=== PATIENT | male | born 1940 | race Caucasian/White ===

== ENCOUNTER 2018-08-26 15:31 | Inpatient (IN) ==
--- NOTE | 2018-08-26 15:14 | HISTORY AND PHYSICAL ---
HISTORY OF PRESENT ILLNESS: Mr. Jo is a patient of mine who last week around Friday or , a week ago, started feeling pretty bad, coughing, bronchial irritation, concerned because he was getting some chest pain and some radiating to the jaw. Blood pressure was fluctuating going up and blood pressure seemed to go down. His chest pain has seemed to resolve, but he still feels pretty bad. He did go to the emergency room and he feels like he has had subjective fever and malaise. PAST MEDICAL HISTORY: 1. Coronary artery disease. 2. He has a pacemaker for persistent atrial fibrillation. 3. Echocardiogram shows good left ventricular function, grade 2A diastolic dysfunction. He has right ventricular systolic pressure of 33 mmHg. 4. History of myocardial infarction. He is status post PTCA to the [facility]. He had a PTCA with LAD disease, followed by Dr. Olson. 5. Hyperlipidemia. 6. Hypertension. 7. History of syncope. 8. Osteoarthritis, lower back pain. Plan to admit him for suspect influenza, suspect viral upper respiratory tract infection complicated by underlying coronary artery disease, concerned about his chest pain and want to make sure he is not having unstable angina. He has had some palpitations as well. He does have chronic atrial fibrillation. SOCIAL HISTORY: He is . Negative for alcohol and tobacco. FAMILY HISTORY: Noncontributory. He does not have a significant history of coronary artery disease in his family. REVIEW OF SYSTEMS: General: He has not been able to eat or drink much. He has had some nausea and dyspepsia. HEENT: No change in his hearing or visual acuity. No complaints of cervical adenopathy. GI/: He has had some nausea and dyspepsia. No diarrhea. No gross hematuria or dysuria. Musculoskeletal/Neurologic: No focal complaints. Immunologic/Hematologic: No significant history. PHYSICAL EXAMINATION: VITAL SIGNS: Blood pressure 140/80, pulse 66, respirations 18, temperature 100.3 degrees. GENERAL: Well developed, well nourished, white male. HEENT: Pupils are equal and round. CVP is less than 6 cm. Oropharynx and nasal mucosa unremarkable. LUNGS: Clear anterior lateral and posterior. ABDOMEN: Soft. SKIN: Warm, dry. EXTREMITIES: No pedal edema. ASSESSMENT AND PLAN: 1. Bronchitis, suspect viral. Will check for influenza. Will give him some intravenous fluids. 2. History of coronary artery disease. He had some chest pain. It felt like it was pressure and radiating to his jaw, so will check cardiac enzymes and check his thyroid function as well. Watch him on the monitor. 3. History of atrial fibrillation. Will watch him on the monitor. The rate seems to be controlled. 4. Blood pressure apparently has been fluctuating, so will monitor that while we are there. 5. History of gastroesophageal reflux. 6. Osteoarthritis with lower back degenerative disk disease. cc: Norm Kenyon MD
[2018-08-26] MEDS ORDERED: CATAPRES-TTS-2 TD SCH (15:37)
[2018-08-26] MEDS ORDERED: ZOFRAN IV PRN (15:37)
[2018-08-26] MEDS ORDERED: SALINE LOCK IV FLUID XX ONE (15:37)
[2018-08-26] MEDS ORDERED: TYLENOL PO PRN (15:37)
--- NOTE | 2018-08-26 15:49 | EKG Report ---
Test Performed on : 08/26/2018 3:44:25 PM Test Reason : chest pain Blood Pressure : / mmHG Vent. Rate : 096 BPM Atrial Rate : 096 BPM P-R Int : 278 ms QRS Dur : 196 ms QT Int : 472 ms P-R-T Axes : 084 -76 091 degrees QTc Int : 596 ms Ventricular-paced rhythm Right atrial enlargement Left ventricular hypertrophy with QRS widening and repolarization abnormality Possible Lateral infarct , age undetermined Abnormal ECG When compared with ECG of 22-AUG-2018 13:22, (Unconfirmed) Sinus rhythm. has replaced Electronic ventricular pacemaker Confirmed by Makenzie VANEGAS, Rico Echevarria ([id number]) on 08/27/2018 7:12:35 AM
[2018-08-26 16:27] LABS: BASO# 0.05 X1000 (0.0-0.2); BASO% 0.7 % (0.0-0.8); EOS# 0.23 X1000 (0.0-0.7); HEMATOCRIT 46.1 % (42.0-52.0); HEMOGLOBIN 16.1 g/dL (14.0-18.0); IMM GRAN# 0.02 X1000 (0.0-0.04); IMM GRAN% 0.3 % (0.0-0.5); LYMPH# 2.98 X1000 (1.2-3.4); MCH 29.4 PG (27-31); MCHC 34.9 g/dL (33-37); MCV 84.1 FL (81-99); MONO# 0.94 X1000 (0.11-0.59); MONO% 12.3 % (1.7-9.3); MPV 10.6 FL (7.4-10.4); NEUT# 3.43 X1000 (1.4-6.5); NEUT% 44.7 % (42.2-75.2); PLT 267 X1000 (130-400); RBC 5.48 XMIL (4.7-6.1); RDW 14.2 % (11.5-14.5); WBC 7.65 X1000 (4.8-10.8)
--- NOTE | 2018-08-26 16:38 | Diag Imaging Result Doc PS360 ---
CHEST-2 VIEWS - 08/26/2018 INDICATION: Chest Pain COMPARISON: 08/22/2018 FINDINGS: Stable left-sided dual-chamber pacemaker. Heart size and pulmonary vascularity is normal. No focal infiltrates, pneumothorax, or pleural effusion. IMPRESSION: No acute disease or change from prior. Electronically signed by Gonzalo Urrutia 08/26/2018 4:36 PM
[2018-08-26 16:41] LABS: ESTIMATED GFR > 60
[2018-08-26 16:43] LABS: AGAP 16; ALB/GLOB RATIO 1.8; ALBUMIN 4.6 g/dL (3.5-5.0); ALKALINE PHOSPHATASE 60 U/L (32-122); BUN 18 mg/dL (8-22); CALCIUM 10.1 mg/dL (8.8-10.2); CHLORIDE 89 mmol/L (98-107); CK PROFILE 170 U/L (24-204); COSMO 265; GLUCOSE 105 mg/dL (70-104); GOT 28 U/L (10-34); GPT 51 U/L (10-44); MAGNESIUM 1.6 mg/dL (1.5-2.7); POTASSIUM 3.7 mmol/L (3.5-5.1); SODIUM 131 mmol/L (136-145); TCO2 26 mmol/L (25-35); TOTAL BILIRUBIN 0.51 mg/dL (0.20-1.00); TOTAL PROTEIN 7.2 g/dL (6.3-8.3)
[2018-08-26] MEDS: NS + KCL 20 MEQ 1,000 ML IV SCH (16:45)
[2018-08-26] MEDS: ALBUTEROL NEB INH PRN (19:45)
[2018-08-26] MEDS: COREG PO SCH (21:21)
[2018-08-26] MEDS: PRINIVIL PO SCH (21:21)
[2018-08-26] MEDS: MULTAQ PO SCH (21:21)
[2018-08-27] MEDS: ADVAIR 250/50 DISKUS INH SCH ×2 (04:34→07:34)
[2018-08-27] MEDS: NS + KCL 20 MEQ 1,000 ML IV SCH ×2 (05:24→05:25)
[2018-08-27] MEDS: PRINIVIL PO SCH ×2 (06:32→08:03)
[2018-08-27] MEDS: COREG PO SCH ×2 (06:33→08:03)
[2018-08-27] MEDS ORDERED: PRILOSEC PO SCH (07:00)
[2018-08-27] MEDS: ALBUTEROL NEB INH PRN ×2 (07:34→11:12)
[2018-08-27] MEDS: MULTAQ PO SCH (08:19)
[2018-08-27] MEDS ORDERED: VICON-C PO SCH (09:00)
[2018-08-27] MEDS ORDERED: NORVASC PO SCH (09:00)
[2018-08-27] MEDS ORDERED: XARELTO PO SCH (09:00)
[2018-08-27] MEDS ORDERED: HYDROCHLOROTHIAZIDE PO SCH (09:00)
[2018-08-27] MEDS ORDERED: TRICOR PO SCH (09:00)
[2018-08-27] MEDS ORDERED: CRESTOR PO SCH (09:00)
[2018-08-27] MEDS ORDERED: ASPIRIN PO SCH (09:00)
[2018-08-27 11:22] VITALS: BP 146/77
--- NOTE | 2018-08-27 13:57 | PROGRESS NOTE ---
DATE: 08/27/2018 SUBJECTIVE: He was admitted yesterday on 08/26/2018. This is a 78-year-old patient of mine that I have known for a long time. Last week about a week ago or 6 days ago, he started feeling pretty bad, coughing, bronchial irritation, concerned because he was getting some chest pain which radiated into his jaw. Blood pressure was fluctuating up and down and that bothered him quite a bit too. He noticed when his blood pressure would go up, he had a little more chest pain. He actually felt a little better by the time he came to my office on 08/26/2018, but still felt bad. [place] like he had subjective fever. No rash, no joint pain. No diarrhea or nausea. He did have some nausea a couple days prior to this to presenting to my office. PAST MEDICAL HISTORY: 1. Coronary artery disease. 2. Pacemaker placed for persistent atrial fibrillation. 3. Echocardiogram which showed good left ventricular function, grade 2A diastolic dysfunction. 4. History of myocardial infarction status post PTCA and PDA and PTCA to the L[facility] followed by Dr. Mc. 5. Hyperlipidemia. 6. Hypertension. 7. History of syncope. 8. Osteoarthritis. He was having bronchial irritation and cough, concern about influenza. We checked nasal swabs; he was negative for A and B, but it looked like consistent with a viral bronchitis. He had no further chest pain. His enzymes were negative. Blood pressure remained stable. Hemodynamically, he looked stable. He was able to eat and felt much better the next day. Cardiac enzymes negative and felt like I could let him go home. We will continue his current medications. Follow back in my office in several weeks. We will resume his home medications. He is taking Norvasc 5 mg a day. Coreg 25 mg b.i.d., Catapres patch 0.2 mg q. week and then Multaq 400 mg b.i.d., Tricor 145 mg a day, Prinivil 10 mg b.i.d., Crestor 5 mg a day, Xarelto 20 mg a day and B complex he is taking one a day. cc: Norm Kenyon MD
[2018-08-29] MEDS ORDERED: CATAPRES-TTS-2 TD SCH (09:00)
== END 2018-08-27 14:37 | disposition home or self-care (01) | DRG 202 ==
LOC: EDIPHOLD 17:25 → 3N 19:51
PROVIDERS: ADMIT Emergency Medicine; ATTEND Emergency Medicine
CPT/HCPCS: 71020; 71046; 80053; 82550; 82948; 83735; 84484; 85025; 87275; 87276; 87804; 93005; 93010; 94640; 94761; A9270; J3480; XXXXX